=== PATIENT | male | born 1940 | race Caucasian/White ===

== ENCOUNTER 2017-08-22 14:01 | Emergency (ER) | payer OTHER, MEDICARE ==
[~2017-08-22] VITALS: Ht 180.3 cm; Wt 140.0 kg
[~2017-08-22 14:01] MED LIST: 1-ME1LIQ PO; ASPI81TA82 PO; CLAR10TA7 PO; DOXY1CAP91 PO; ENAL20TA81 PO; FLUT1SPR9 EACH NARE; GLUC10TA3 PO; HYDR-2768 PO; LANTUS2P SQ; LEVA500T PO; LOPR50TA12 PO; METF-324 PO; METF500 PO; OMEG100037 PO; OMEP20CA5 PO; SIMV20 PO; SORB70SO36 PO; TRAM50TA PO; TRIA.1%T TOP; VENTAER INH
[2017-08-22] MEDS ORDERED: IOHEXOL 350 MG/ML 10 ML VIAL (for RAD DIAG) IVCONTRAST ONE (14:02)
[2017-08-22 14:13] VITALS: BP 182/76; PULSE 97; RESP 24; TEMP 98.7; O2SAT 94
--- NOTE | 2017-08-22 14:29 | PD ---
HPI Chief Complaint: Respiratory Symptoms Time Seen by Provider: 14:21 Travel History International Travel<30 days: No Contact w/Intl Traveler<30days: No Traveled to known affect area: No History of Present Illness HPI This patient complains of shortness of breath. Duration is 3 days. He has a dry hacking cough. Denies fever or chest pain. He says he has COPD from pipe smoking but quit decades ago. He uses inhaler at home. Does not use oxygen. Symptoms severity is moderate. No alleviating factors. No exacerbating factors. PFSH Past Medical History Anxiety: No Depression: No Cancer: No Cardiovascular Problems: Yes High Cholesterol: Yes Diabetes: No Patient Takes Glucophage: No Diminished Hearing: No Endocrine: Yes Glaucoma: No Hepatitis: No Hiatal Hernia: No Hypertension: Yes Medical other: Yes (BACK PROBLEMS) Musculoskeletal: Yes Psychiatric: No Respiratory: Yes (COPD ) Thyroid Disease: No Past Surgical History Abdominal Surgery: Yes (MECKLES DIVERTICULUM) Eye Surgery: Yes (CATARACT RIGHT AND LEFT EYE) Pacemaker: No Other Surgery: Yes Social History Alcohol Use: No Tobacco Use: No (FORMER) Substance Use: No Allergies-Medications (Allergen,Severity, Reaction): Coded Allergies: No Known Allergies (Unverified Allergy, Unknown, 08/22/17) Reported Meds & Prescriptions Reported Meds & Active Scripts Active Prednisone 20 Mg Tab 40 Mg PO DAILY Take 40 mg (2 tablets) daily for 5 days Review of Systems General / Constitutional: No: Fever Eyes: No: Visual changes HENT: No: Headaches Cardiovascular: Positive: Edema, No: Chest Pain or Discomfort Respiratory: Positive: Cough, Shortness of Breath, Wheezing Gastrointestinal: No: Abdominal Pain Genitourinary: No: Dysuria Musculoskeletal: Positive: Edema, No: Pain Skin: No Rash Neurologic: No: Weakness Psychiatric: No: Depression Endocrine: No: Polydipsia Hematologic/Lymphatic: No: Easy Bruising Physical Exam Narrative GENERAL: Well-nourished, well-developed patient in no apparent distress. SKIN: Focused skin assessment reveals no rash and nodules. Skin is Warm and dry. HEAD: Atraumatic. Normocephalic. EYES: Pupils equal and round. No scleral icterus. No injection or drainage. ENT: No nasal bleeding or discharge. Mucous membranes pink and moist. NECK: Trachea midline. No JVD. CARDIOVASCULAR: Regular rate and rhythm. No murmur appreciated. RESPIRATORY: No accessory muscle use. Some expiratory wheezing. Breath sounds equal bilaterally. GASTROINTESTINAL: Abdomen soft, non-tender, nondistended. Hepatic and splenic margins not palpable. MUSCULOSKELETAL: No obvious deformities. No clubbing. No cyanosis. Trace symmetric edema the feet ankles . NEUROLOGICAL: Awake and alert. No obvious cranial nerve deficits. Motor grossly within normal limits. Normal speech. PSYCHIATRIC: Appropriate mood and affect; insight and judgment normal. Data Data Last Documented VS Vital Signs Date Time Temp Pulse Resp B/P (MAP) Pulse Ox O2 Delivery O2 Flow Rate FiO2 08/22/17 16:00 98 15 145/67 (93) 98 Nasal Cannula 3.00 08/22/17 14:13 98.7 Orders Orders Iv Access Insert/Monitor (08/22/17 14:21) Chest, Single Ap (08/22/17 ) Electrocardiogram (08/22/17 ) Complete Blood Count With Diff (08/22/17 14:21) Basic Metabolic Panel (Bmp) (08/22/17 14:21) Creatine Kinase (Cpk) (08/22/17 14:21) Troponin I (08/22/17 14:21) Albuterol-Ipratropium Neb (Duoneb Neb) (08/22/17 14:30) Ct Pulmonary Angiogram (08/22/17 ) Iohexol 350 Inj (Omnipaque 350 Inj) (08/22/17 14:02) Prednisone (Deltasone) (08/22/17 18:00) Labs Laboratory Tests Test 08/22/17 14:25 08/22/17 15:35 White Blood Count 8.6 TH/MM3 Red Blood Count 4.15 MIL/MM3 Hemoglobin 11.1 GM/DL Hematocrit 34.2 % Mean Corpuscular Volume 82.4 FL Mean Corpuscular Hemoglobin 26.6 PG Mean Corpuscular Hemoglobin Concent 32.4 % Red Cell Distribution Width 16.8 % Platelet Count 311 TH/MM3 Mean Platelet Volume 7.6 FL Neutrophils (%) (Auto) 69.9 % Lymphocytes (%) (Auto) 14.7 % Monocytes (%) (Auto) 14.5 % Eosinophils (%) (Auto) 0.4 % Basophils (%) (Auto) 0.5 % Neutrophils # (Auto) 6.0 TH/MM3 Lymphocytes # (Auto) 1.3 TH/MM3 Monocytes # (Auto) 1.2 TH/MM3 Eosinophils # (Auto) 0.0 TH/MM3 Basophils # (Auto) 0.0 TH/MM3 CBC Comment DIFF FINAL Differential Comment Blood Urea Nitrogen 34 MG/DL Creatinine 1.44 MG/DL Random Glucose 150 MG/DL Calcium Level 8.1 MG/DL Sodium Level 133 MEQ/L Potassium Level 4.9 MEQ/L Chloride Level 101 MEQ/L Carbon Dioxide Level 23.3 MEQ/L Anion Gap 9 MEQ/L Estimat Glomerular Filtration Rate 48 ML/MIN Total Creatine Kinase 287 U/L Troponin I LESS THAN 0.02 NG/ML MDM Medical Decision Making Medical Screen Exam Complete: Yes Emergency Medical Condition: Yes Medical Record Reviewed: Yes Differential Diagnosis COPD, bronchitis, pneumonia, PE Narrative Course I have reviewed the patient's electronic medical record. IV placed CBC is normal Metabolic profile shows some renal insufficiency with creatinine 1.44 I reviewed the chest x-ray which shows cardiomegaly but no infiltrate I gave him a series of 3 nebulizer treatments and a dose of prednisone On reassessment he is improved CT pulmonary and he was done to rule out PE and turns out to be negative Prescribed him prednisone. He has an inhaler at home. [facility]. Diagnosis Primary Impression: COPD with acute exacerbation Additional Instructions: The patient was advised to follow up with their physician and return if they worsen. Med/Other Pt SpecificInfo: Prescription(s) given Scripts Prednisone (Prednisone) 20 Mg Tab 40 MG PO DAILY, #10 TAB 0 Refills Take 40 mg (2 tablets) daily for 5 days Prov: Benjamin Prather MD 08/22/17 Disposition: DISCHARGE HOME Condition: Stable Benjamin Prather MD Aug 22, 2017 14:29
[2017-08-22] MEDS ORDERED: RESP: ALBUTEROL 2.5 MG/IPRATROPIUM 0.5 MG NEB (SCH) NEB ONE (14:30)
[2017-08-22 14:48] LABS: BASOPHIL % 0.5 % (0.0-2.0); EOSINOPHIL % 0.4 % (0.0-4.0); HEMATOCRIT 34.2 % (39.0-51.0); HEMOGLOBIN 11.1 GM/DL (13.0-17.0); LYMPH % 14.7 % (9.0-44.0); LYMPHOCYTE # 1.3 TH/MM3 (1.0-4.8); MEAN CELL VOLUME 82.4 FL (80.0-100.0); MEAN CORPUSCULAR HEMOGLOBIN 26.6 PG (27.0-34.0); MEAN CORPUSCULAR HGB CONC 32.4 % (32.0-36.0); MEAN PLATELET VOLUME 7.6 FL (7.0-11.0); MONO % 14.5 % (0.0-8.0); MONOCYTE # 1.2 TH/MM3 (0-0.9); NEUT % 69.9 % (16.0-70.0); PLATELET COUNT 311 TH/MM3 (150-450); RED BLOOD COUNT 4.15 MIL/MM3 (4.50-5.90); RED CELL DISTRIBUTION WIDTH 16.8 % (11.6-17.2); WHITE BLOOD COUNT 8.6 TH/MM3 (4.0-11.0)
[2017-08-22 15:04] VITALS: O2SAT 94
--- NOTE | 2017-08-22 15:16 | RADRPT ---
EXAM DATE/TIME: 08/22/2017 14:32 [facility] COMPARISON: CHEST SINGLE AP, July 27, 2014, 0:25. INDICATIONS : Chest pain and shortness of breath. MEDICAL HISTORY : Chronic obstructive pulmonary disease. SURGICAL HISTORY : None. ENCOUNTER: Initial ACUITY: 3 days PAIN SCORE: 9/10 LOCATION: Bilateral chest FINDINGS: The cardiac silhouette is enlarged in transverse diameter. The lungs are free of acute parenchymal op acity. No effusions are identified. There is prominence of the aortic knob is with calcification sohan acteristic of atherosclerotic vascular disease. The exam is limited secondary to motion artifact whic h limits the interpretation. CONCLUSION: 1. Cardiomegaly. No acute pulmonary disease. Filiberto Lindsay MD on August 22, 2017 at 15:14 Board Certified Radiologist. This report was verified electronically.
[2017-08-22 16:00] VITALS: BP 145/67; PULSE 98; RESP 15; O2SAT 98
[2017-08-22 16:29] LABS: BICARBONATE 23.3 MEQ/L (21.0-32.0); BLOOD UREA NITROGEN 34 MG/DL (7-18); CALCIUM 8.1 MG/DL (8.5-10.1); CHLORIDE 101 MEQ/L (98-107); CREATININE 1.44 MG/DL (0.60-1.30); GLOMERULAR FILTRATION RATE 48 ML/MIN (>89); GLUCOSE,RANDOM 150 MG/DL (74-106); SODIUM (NA) 133 MEQ/L (136-145); TROPONIN I LESS THAN 0.02 NG/ML (0.02-0.05)
--- NOTE | 2017-08-22 17:48 | RADRPT ---
EXAM DATE/TIME: 08/22/2017 16:45 [facility] COMPARISON: CHEST SINGLE AP, August 22, 2017, 14:32. INDICATIONS : Shortness of breath for two weeks. IV CONTRAST: 74 cc Omnipaque 350 (iohexol) IV RADIATION DOSE: 22.02 CTDIvol (mGy) ; Patient body habitus MEDICAL HISTORY : Hypertension. Chronic obstructive pulmonary disease. SURGICAL HISTORY : None. ENCOUNTER: Initial ACUITY: 1 day PAIN SCALE: 0/10 LOCATION: Bilateral chest TECHNIQUE: Volumetric scanning of the chest was performed using a pulmonary embolism protocol MIP images were re constructed. Using automated exposure control and adjustment of the mA and/or kV according to patien t size, radiation dose was kept as low as reasonably achievable to obtain optimal diagnostic quality images. DICOM format image data is available electronically for review and comparison. Follow-up recommendations for detected pulmonary nodules are based at a minimum on nodule size and pa tient risk factors according to Fleischner Society Guidelines. FINDINGS: Examination of the pulmonary vasculature demonstrates good filling of the main, lobar and segmental b ranches. There are no filling defects to suggest pulmonary embolism. Multiplanar reconstructions are also unremarkable. Examination of the lung barrett demonstrates no evidence of pulmonary nodule. No pleural fluid is iden tified. There is minimal scarring in the left upper lobe. There is increased anterior posterior dimen david characteristic of COPD. Examination of the mediastinum demonstrates no abnormally enlarged lymph nodes by CT criteria. No axi llary or hilar abnormalities are identified. Coronary artery calcifications are present. The visualiz ed upper abdomen demonstrates no abnormality. CONCLUSION: 1. No evidence of pulmonary embolism. Filiberto Lindsay MD on August 22, 2017 at 17:43 Board Certified Radiologist. This report was verified electronically.
[2017-08-22] MEDS ORDERED: PRED20 PO (17:59)
[2017-08-22] MEDS ORDERED: predniSONE 20 MG TAB PO ONE (18:00)
--- NOTE | 2017-08-23 19:09 | EKG ---
Date Performed: 08/22/2017 Time Performed: 14:28:40 PTAGE: 77 years EKG: Sinus rhythm RIGHT BUNDLE BRANCH BLOCK Compared to previous tracing, the patient is no longer tachycardic ABNORMA L ECG PREVIOUS TRACING : 07/27/2014 01.35 DOCTOR: Destiny Garner Interpretating Date/Time 08/23/2017 19:09:20
== END 2017-08-22 18:27 | disposition home or self-care (01) ==
LOC: NEPC 14:01
DX: J44.1 Chronic obstructive pulmonary disease with (acute) exacerbation (principal); I10 Essential (primary) hypertension; R94.31 Abnormal electrocardiogram [ECG] [EKG]; Z72.0 Tobacco use
CPT/HCPCS: 71045; 71275; 80048; 82550; 84484; 85025; 93005; 94664; 99285; J7512; Q9967

== ENCOUNTER 2018-07-29 11:11 | Inpatient (IN) ==
[2018-07-29] MEDS ORDERED: MethylPREDNISolone Sod Succinate Inj 125 MG/2 ML Vial IV.PUSH ONE (11:27)
--- NOTE | 2018-07-29 11:32 | ED ---
HPI General Chief complaint: Respiratory Symptoms Stated complaint: SOB Complaint Time Seen by Provider: 07/29/18 11:20 History of Present Illness HPI narrative: This is a 78-year-old male who reports a history of coronary artery disease, 3 stents, diabetes, COPD, patient of the [place], presents for evaluation of dyspnea. He reports over the past 3 months he has had intermittent dyspnea. It is worse since yesterday. He reports that yesterday he also developed a dry cough. Symptoms are moderate, worse when ambulating, endorses some orthopnea as well. He denies chest pain, objective fevers, chills or myalgias, abdominal pain, nausea or vomiting, new lower extremity edema. He reports that he is compliant with all of his medications that are prescribed to him at the [place]. He has no other complaints at this time. Related Data Home Medications Medication Instructions Recorded Confirmed albuterol sulfate 2 puff INHALATION Q4-6H PRN 07/29/18 07/29/18 amlodipine 10 mg PO DAILY 07/29/18 07/29/18 aspirin [Aspir-81] 81 mg PO DAILY 07/29/18 07/29/18 budesonide-formoterol 2 puff INHALATION BID 07/29/18 07/29/18 cadexomer iodine 40 g TOPICAL Q3D 07/29/18 07/29/18 clopidogrel 75 mg PO DAILY 07/29/18 07/29/18 docusate sodium 50 mg PO DAILY 07/29/18 07/29/18 enalapril maleate 20 mg PO BID 07/29/18 07/29/18 ferrous sulfate 324 mg PO BID 07/29/18 07/29/18 furosemide 40 mg PO DAILY 07/29/18 07/29/18 glipizide 10 mg PO BID 07/29/18 07/29/18 hydrochlorothiazide 25 mg PO DAILY 07/29/18 07/29/18 metformin 500 mg PO BID 07/29/18 07/29/18 omeprazole 20 mg PO DAILY 07/29/18 07/29/18 potassium chloride 20 meq PO BID 07/29/18 07/29/18 simvastatin 40 mg PO QPM 07/29/18 07/29/18 sorbitol 15 ml PO DAILY 07/29/18 07/29/18 tramadol 50 mg PO Q4-6H PRN 07/29/18 07/29/18 Allergies Allergy/AdvReac Type Severity Reaction Status Date / Time No Known Allergies Allergy Verified 07/29/18 11:17 Review of Systems ROS: all other systems reviewed are negative [facility] Surgical History Surgical History Previous back surgery (Acute) Social History Social History Smoking Status: Never smoker How Often Do You Have a Drink Containing Alcohol: Unable to Obtain Recent Travel in [facility] within the Last 8 Weeks: No Recent Out of Country Travel within the Last 8 Weeks: No Exam Narrative Exam Narrative: GENERAL: This is an obese male who appears tachypneic on examination. Vital signs reviewed. SKIN: Warm and dry. HEAD: Atraumatic. Normocephalic. EYES: Pupils equal and round. No scleral icterus. No injection or drainage. ENT: No nasal bleeding or discharge. Mucous membranes pink and moist. NECK: Trachea midline. No JVD. CARDIOVASCULAR: Regular rate and rhythm. No murmur appreciated. RESPIRATORY: No accessory muscle use. Expiratory wheezing noted bilaterally. GASTROINTESTINAL: Abdomen soft, non-tender, nondistended. Hepatic and splenic margins not palpable. MUSCULOSKELETAL: No obvious deformities. No clubbing. No cyanosis. No edema. NEUROLOGICAL: Awake and alert. No obvious cranial nerve deficits. Motor grossly within normal limits. Normal speech. Course Initial Documented Vital Signs Temperature 99.5 F 07/29/18 11:12 Pulse Rate 106 H 07/29/18 11:12 Respiratory Rate 24 07/29/18 11:12 Blood Pressure 207/94 H 07/29/18 11:12 Pulse Oximetry 89 L 07/29/18 11:12 Last Documented Vital Signs Temperature 99.5 F 07/29/18 11:12 Pulse Rate 101 H 07/29/18 15:41 Respiratory Rate 24 07/29/18 15:41 Blood Pressure 167/81 H 07/29/18 14:16 Pulse Oximetry 93 L 07/29/18 15:41 Medical Decision Making CALEB Attestation CALEB supervised visit: Yes Attestation: I, Dr. Jessica, have reviewed the advance practice practitioner's documentation and am in agreement, met with the patient face to face, made the diagnosis, and the medical decision making was done by me. *My assessment and Findings: Patient is a 78 year old male who comes in complaining of shortness of breath. He has been short of breath for a few months, but worse since yesterday. He is hypoxic on arrival with an O2 sat of 89%, this improved with NC. Given duoneb. CTA performed shows infiltrate, no evidence of PE. Patient given antibiotics. Will be admitted for further management. [facility] Narrative Medical decision making narrative: . His symptomsThe patient was placed on ECG monitoring and Pulse oximetry. Twelve-lead EKG was obtained. Lab work, chest x -ray obtained. Patient was administered 125 mg of Solu-Medrol, DuoNeb treatment. Lab work and imaging studies reviewed, CT pulmonary angiogram was obtained because the patient is tachycardic and hypoxic. It is negative for pulmonary embolism, suboptimal study per radiologist. There is an infiltrate in the left lung base and examination are consistent with pneumonia and COPD exacerbation, hypoxia on room air. The patient was given azithromycin and Rocephin. He will be admitted for further treatment. Medical Screen Exam Complete: Yes Emergency Medical Condition: Yes Differential Diagnosis Differential Diagnosis: COPD exacerbation, pneumonia, acute coronary syndrome, pulmonary edema, CHF exacerbation, pneumothorax, pulmonary embolism, bronchitis Lab Data Result diagrams: 07/29/18 11:30 07/29/18 11:30 Lab Results 07/29/18 07/29/18 07/29/18 Range/Units 11:30 11:30 11:30 WBC 7.8 (4.0-11.0) th/mm3 RBC 3.94 L (4.50-5.90) mil/mm3 Hgb 11.6 L (13.0-17.0) gm/dL Hct 34.0 L (39.0-51.0) % MCV 86.2 (80.0-100.0) fL MCH 29.3 (27.0-34.0) pg MCHC 34.0 (32.0-36.0) % RDW 15.9 (11.6-17.2) % Plt Count 343 (150-450) th/mm3 MPV 7.5 (7.0-11.0) fL Neut % (Auto) 79.1 H (16.0-70.0) % Lymph % (Auto) 9.5 (9.0-44.0) % [place] % (Auto) 9.9 H (0.0-8.0) % Eos % (Auto) 0.7 (0.0-4.0) % Baso % (Auto) 0.8 (0.0-2.0) % Neut # (Auto) 6.2 (1.8-7.7) th/mm3 Lymph # (Auto) 0.7 L (1.0-4.8) th/mm3 [place] # (Auto) 0.8 (0.0-0.9) th/mm3 Eos # (Auto) 0.1 (0.0-0.4) th/mm3 Baso # (Auto) 0.1 (0.0-0.2) th/mm3 WBC Differential . Differential Comment Auto diff final PT (9.8-11.6) sec INR Ratio APTT (23.4-31.7) sec Puncture Site Patient Temperature O2 Saturation (90-100) % ABG pH (7.380-7.420) ABG pCO2 (38-42) mmHg ABG pO2 (61-120) mmHg ABG HCO3 (22-26) mmol/L ABG O2 Content (12.0-20.0) Vol % ABG Base Excess (-2-2) mmol/L ABG Methemoglobin (0-2) % Wil Test Hemoglobin (12.0-16.0) G/DL Carboxyhemoglobin (0-4) % O2 Delivery Device Liter Flow L/M Inspired O2 % Critical Value Sodium 137 (136-145) meq/L Potassium 4.3 (3.5-5.1) meq/L Chloride 103 (98-107) meq/L Carbon Dioxide 24.0 (21.0-32.0) meq/L Anion Gap 10 (5-15) meq/L BUN 18 (7-18) mg/dL Creatinine 1.28 (0.60-1.30) mg/dL Estimated GFR 54 L (>89) mL/min Random Glucose 126 H (74-106) mg/dL Lactic Acid 1.6 (0.4-2.0) mmol/L Calcium 8.7 (8.5-10.1) mg/dL Magnesium (1.5-2.5) mg/dL Total Bilirubin 0.6 (0.2-1.0) mg/dL AST 13 L (15-37) U/L ALT 19 (12-78) U/L Alkaline Phosphatase 93 (45-117) U/L Total Creatine Kinase 113 (39-308) U/L CK-MB (CK-2) 1.1 (0.5-3.6) ng/mL Troponin I Less than 0.02 L (0.02-0.05) ng/mL B-Natriuretic Peptide (0-100) pg/mL Total Protein 7.8 (6.4-8.2) g/dL Albumin 3.5 (3.4-5.0) g/dL 07/29/18 07/29/18 07/29/18 Range/Units 11:30 11:35 11:35 WBC (4.0-11.0) th/mm3 RBC (4.50-5.90) mil/mm3 Hgb (13.0-17.0) gm/dL Hct (39.0-51.0) % MCV (80.0-100.0) fL MCH (27.0-34.0) pg MCHC (32.0-36.0) % RDW (11.6-17.2) % Plt Count (150-450) th/mm3 MPV (7.0-11.0) fL Neut % (Auto) (16.0-70.0) % Lymph % (Auto) (9.0-44.0) % [place] % (Auto) (0.0-8.0) % Eos % (Auto) (0.0-4.0) % Baso % (Auto) (0.0-2.0) % Neut # (Auto) (1.8-7.7) th/mm3 Lymph # (Auto) (1.0-4.8) th/mm3 [place] # (Auto) (0.0-0.9) th/mm3 Eos # (Auto) (0.0-0.4) th/mm3 Baso # (Auto) (0.0-0.2) th/mm3 WBC Differential Differential Comment PT 10.0 (9.8-11.6) sec INR 1.0 Ratio APTT 37.1 H (23.4-31.7) sec Puncture Site Patient Temperature O2 Saturation (90-100) % ABG pH (7.380-7.420) ABG pCO2 (38-42) mmHg ABG pO2 (61-120) mmHg ABG HCO3 (22-26) mmol/L ABG O2 Content (12.0-20.0) Vol % ABG Base Excess (-2-2) mmol/L ABG Methemoglobin (0-2) % Wil Test Hemoglobin (12.0-16.0) G/DL Carboxyhemoglobin (0-4) % O2 Delivery Device Liter Flow L/M Inspired O2 % Critical Value Sodium (136-145) meq/L Potassium (3.5-5.1) meq/L Chloride (98-107) meq/L Carbon Dioxide (21.0-32.0) meq/L Anion Gap (5-15) meq/L BUN (7-18) mg/dL Creatinine (0.60-1.30) mg/dL Estimated GFR (>89) mL/min Random Glucose (74-106) mg/dL Lactic Acid (0.4-2.0) mmol/L Calcium (8.5-10.1) mg/dL Magnesium 1.8 (1.5-2.5) mg/dL Total Bilirubin (0.2-1.0) mg/dL AST (15-37) U/L ALT (12-78) U/L Alkaline Phosphatase (45-117) U/L Total Creatine Kinase (39-308) U/L CK-MB (CK-2) (0.5-3.6) ng/mL Troponin I (0.02-0.05) ng/mL B-Natriuretic Peptide 71 (0-100) pg/mL Total Protein (6.4-8.2) g/dL Albumin (3.4-5.0) g/dL 07/29/18 Range/Units 11:42 WBC (4.0-11.0) th/mm3 RBC (4.50-5.90) mil/mm3 Hgb (13.0-17.0) gm/dL Hct (39.0-51.0) % MCV (80.0-100.0) fL MCH (27.0-34.0) pg MCHC (32.0-36.0) % RDW (11.6-17.2) % Plt Count (150-450) th/mm3 MPV (7.0-11.0) fL Neut % (Auto) (16.0-70.0) % Lymph % (Auto) (9.0-44.0) % [place] % (Auto) (0.0-8.0) % Eos % (Auto) (0.0-4.0) % Baso % (Auto) (0.0-2.0) % Neut # (Auto) (1.8-7.7) th/mm3 Lymph # (Auto) (1.0-4.8) th/mm3 [place] # (Auto) (0.0-0.9) th/mm3 Eos # (Auto) (0.0-0.4) th/mm3 Baso # (Auto) (0.0-0.2) th/mm3 WBC Differential Differential Comment PT (9.8-11.6) sec INR Ratio APTT (23.4-31.7) sec Puncture Site Right radial Patient Temperature 98.6 O2 Saturation 93 (90-100) % ABG pH 7.47 H (7.380-7.420) ABG pCO2 34 L (38-42) mmHg ABG pO2 79 (61-120) mmHg ABG HCO3 24 (22-26) mmol/L ABG O2 Content 14.3 (12.0-20.0) Vol % ABG Base Excess 0.6 (-2-2) mmol/L ABG Methemoglobin 0.8 (0-2) % Wil Test Present Hemoglobin 10.9 L (12.0-16.0) G/DL Carboxyhemoglobin 1.8 (0-4) % O2 Delivery Device Nasal cannula Liter Flow 2.50 L/M Inspired O2 30 % Critical Value No Sodium (136-145) meq/L Potassium (3.5-5.1) meq/L Chloride (98-107) meq/L Carbon Dioxide (21.0-32.0) meq/L Anion Gap (5-15) meq/L BUN (7-18) mg/dL Creatinine (0.60-1.30) mg/dL Estimated GFR (>89) mL/min Random Glucose (74-106) mg/dL Lactic Acid (0.4-2.0) mmol/L Calcium (8.5-10.1) mg/dL Magnesium (1.5-2.5) mg/dL Total Bilirubin (0.2-1.0) mg/dL AST (15-37) U/L ALT (12-78) U/L Alkaline Phosphatase (45-117) U/L Total Creatine Kinase (39-308) U/L CK-MB (CK-2) (0.5-3.6) ng/mL Troponin I (0.02-0.05) ng/mL B-Natriuretic Peptide (0-100) pg/mL Total Protein (6.4-8.2) g/dL Albumin (3.4-5.0) g/dL Imaging Data Radiologist's impression: Chest X-Ray 07/29/18 11:27 CONCLUSION: No acute cardiopulmonary disease. Chest CTA 07/29/18 12:27 CONCLUSION: 1. Suboptimal examination secondary to suboptimal opacification of the pulmonary arterial system. There is no evidence of central pulmonary alyssum. The secondary and tertiary branch vessels are in adequately evaluated and small emboli may be obscured. 2. Mild patchy opacity in the left medial lung base which could represent an early pneumonia. Discharge Plan Discharge Disposition Patient Disposition: ED Admit(ED Internal Use Only) Discharge Condition Condition: Stable Discharge Order Discharge Orders: ED Use Only Admit Order (Routine); Ordered 07/29/18 Ordered By: Feliberto Lemus Discharge Details Diagnosis: Pneumonia, COPD exacerbation Physicians Team ED Provider: Blanche Jessica ED Midlevel Provider: Feliberto Lemus Attending Provider: Steve Mejia Status ED Status: Admitted Patient
[2018-07-29 11:55] LABS: ABG Base Excess 0.6 mmol/L (-2-2); ABG PCO2 34 mmHg (38-42); ABG PO2 79 mmHg (61-120)
[2018-07-29 12:03] LABS: Baso # (Auto) 0.1 th/mm3 (0.0-0.2); Baso % (Auto) 0.8 % (0.0-2.0); Eos # (Auto) 0.1 th/mm3 (0.0-0.4); Eos % (Auto) 0.7 % (0.0-4.0); Hemoglobin 11.6 gm/dL (13.0-17.0); Lymph # (Auto) 0.7 th/mm3 (1.0-4.8); Lymph % (Auto) 9.5 % (9.0-44.0); Mean Corpuscular Hemoglobin 29.3 pg (27.0-34.0); Mean Corpuscular Volume 86.2 fL (80.0-100.0); Mean Platelet Volume 7.5 fL (7.0-11.0); Mono # (Auto) 0.8 th/mm3 (0.0-0.9); Mono % (Auto) 9.9 % (0.0-8.0); Neut # (Auto) 6.2 th/mm3 (1.8-7.7); Neut % (Auto) 79.1 % (16.0-70.0); Platelet Count 343 th/mm3 (150-450); Red Blood Count 3.94 mil/mm3 (4.50-5.90); Red Cell Distribution Width 15.9 % (11.6-17.2); White Blood Count 7.8 th/mm3 (4.0-11.0)
[2018-07-29 12:08] LABS: Activated Partial Thrombo Time 37.1 sec (23.4-31.7)
[2018-07-29 12:22] LABS: Albumin 3.5 g/dL (3.4-5.0); Anion Gap 10 meq/L (5-15); Blood Urea Nitrogen 18 mg/dL (7-18); Calcium 8.7 mg/dL (8.5-10.1); Chloride 103 meq/L (98-107); Glomerular Filtration Rate 54 mL/min (>89); Glucose,Random 126 mg/dL (74-106); Potassium 4.3 meq/L (3.5-5.1); Sodium 137 meq/L (136-145)
[2018-07-29 12:23] LABS: Alanine Aminotransferase 19 U/L (12-78); Aspartate Aminotransferase 13 U/L (15-37)
[2018-07-29 12:26] LABS: Alkaline Phosphatase 93 U/L (45-117); Creatine Kinase 113 U/L (39-308); Total Protein 7.8 g/dL (6.4-8.2)
--- NOTE | 2018-07-29 12:30 | XR ---
EXAM DATE: 07/29/2018 12:22 PM EST AGE/SEX: 78 years / Male INDICATIONS: Cough. CLINICAL DATA: This is the patient's initial encounter. Patient reports that signs and symptoms have been present for 1 month and indicates a pain score of 0/10. MEDICAL/SURGICAL HISTORY: . Hypertension. Chronic obstructive pulmonary disease. None. COMPARISON: [facility] [place], CHEST SINGLE AP, 08/22/2017. . FINDINGS: A single AP view of the chest demonstrates the lungs to be symmetrically aerated without evidence of mass, infiltrate or effusion. Mild atherosclerotic calcifications present in the aorta. The heart si ze is at the upper limits of normal with no perihilar edema. There are multiple overlying electrocard iogram leads. Osseous structures are intact. CONCLUSION: No acute cardiopulmonary disease. Electronically signed by: Arpit Peralta MD Board Certified Radiologist 07/29/2018 12:29 PM [facility] Crawford
[2018-07-29 12:38] LABS: Creatine Kinase MB 1.1 ng/mL (0.5-3.6)
--- NOTE | 2018-07-29 13:39 | CT ---
EXAM DATE: 07/29/2018 1:23 PM EST AGE/SEX: 78 years / Male INDICATIONS: Shortness of breath. CLINICAL DATA: This is the patient's initial encounter. Patient reports that signs and symptoms have been present for 2 days and indicates a pain score of 1/10. MEDICAL/SURGICAL HISTORY: Chronic obstructive pulmonary disease. Hypertension. None. RADIATION DOSE: 29.07 CTDI (mGy) [place] [facility] [place]/22/2017. . TECHNIQUE: Volumetric scanning was performed using a multi-row detector CT scanner during bolus infu david of 71 ml Omnipaque 350 (iohexol) nonionic water-soluble contrast as a single exam dose. The fior a was post processed with a variety of visualization algorithms including full volume maximum intensi ty projection and sliding thin slab reformation. Using automated exposure control and adjustment of t he mA and/or kV according to patient size, radiation dose was kept as low as reasonably achievable to obtain optimal diagnostic quality images. DICOM format image data is available electronically for r eview and comparison. FINDINGS: Suboptimal examination secondary to suboptimal opacification of the pulmonary arterial syst em [place] to timing of the bolus. Pulmonary Arteries: No filling defects are seen in the 18th pulmonary artery and right and left bran ch vessels. The subsegmental vessels are suboptimally evaluated. More peripheral emboli cannot be exc luded. Lung: Mild patchy opacity now noted in the left medial lung base. Effusion: None. Mediastinum: No evidence of mediastinal or hilar adenopathy. Coronary artery calcifications are agai n noted. Other: The axilla is unremarkable. CONCLUSION: 1. Suboptimal examination secondary to suboptimal opacification of the pulmonary arterial system. Th ere is no evidence of central pulmonary alyssum. The secondary and tertiary branch vessels are in oliver quately evaluated and small emboli may be obscured. 2. Mild patchy opacity in the left medial lung base which could represent an early pneumonia. Electronically signed by: Arpit Peralta MD Board Certified Radiologist 07/29/2018 1:38 PM EST
[2018-07-29] MEDS ORDERED: Azithromycin Inj 500 MG in Sodium Chlor 0.9% Inj 250 ML IV.SIG ONE (13:48)
[2018-07-29] MEDS ORDERED: Acetaminophen 325 MG Tablet PO PRN (14:54)
[2018-07-29] MEDS ORDERED: guaiFENesin/Dextromethorphan 200 MG/20 MG 10 ML UDC PO PRN (14:54)
[2018-07-29] MEDS ORDERED: Azithromycin Inj 500 MG in Sodium Chlor 0.9% Inj 250 ML IV.SIG SCH (15:00)
[2018-07-29] MEDS: Enoxaparin Inj 40 MG/0.4 ML Syringe SQ SCH (15:18)
--- NOTE | 2018-07-29 17:02 | P.HP ---
History of Present Illness Primary Care Physician: Nathanael Macias Chief Complaint: SOB History of Present Illness: 78-year-old male with history of HTN, CAD s/p stents x3, DM, COPD, presents with worsening shortness of breath. Patient states he has been battling shortness of breath over the past 3 months, however became significantly worse this week to where he could not even ambulate to his mailbox. He also reports recently developing a dry nonproductive cough and endorses some orthopnea. He has also noticed recent occasional wheezing for which he has been using his albuterol rescue inhaler 4x a day with minimal relief. Denies any fever/chills , chest pain, palpitations, abdominal pain, nausea/vomiting, diarrhea, or urinary complaints. He denies any other medical complaints at this time. The [facility] with [facility]. He states he had 3 stents placed in December 2017. He denies any history of CHF, although he has gained 30lbs over the past few months and was told by his PCP that it was due to retaining fluid and was started on lasix in addition to his hctz. He believes he had an echocardiogram within the past 6months at [facility] that was reportedly unremarkable. Inpatient Certification: I certify that the inpatient services were ordered in accordance with Medicare regulations governing the order. This includes certification that hospital inpatient services are reasonable and necessary and in the case of services not specified as inpatient-only under 42 CFR 419.22(n), that they are appropriately provided as inpatient services in accordance to with the 2-midnight benchmark under 43 CFR 412.3(e) Estimated Total Length of Stay (Days): 3 Plans for Post Hospital Care: Home Review of Systems All other systems reviewed negative except as stated in [facility] - History History Provided By: Patient - Medical History Medical History: Medical History (Last Updated 07/29/18 @ 17:43 by Opal Dash) CAD (coronary artery disease) COPD (chronic obstructive pulmonary disease) Chronic back pain Diabetes mellitus GERD (gastroesophageal reflux disease) History of Meckel's diverticulum Hyperlipidemia Hypertension - Surgical History Surgical History: Surgical History (Last Updated 07/29/18 @ 17:42 by Opal Dash) History of appendectomy History of cardiac catheterization History of colon resection History of coronary artery stent placement Previous back surgery - Family History Family History: Family History (Last Updated 12/14/18 @ 17:41 by Opal Dash) Father Heart disease Leukemia Mother Gynecologic cancer - Social History I have reviewed the patient's Social History: Yes - Tobacco History Smoking Status: Former smoker Tobacco Type: Pipe (quit in 1986) - Alcohol History How Often Do You Have a Drink Containing Alcohol: Monthly or less - Substance Use History Substance History: No History of Abuse - Travel History Recent Travel in the [place] Within the Last 8 Weeks: No Recent Travel Out of the Country Within the Last 8 Weeks: No - Immunization History Tetanus Immunization: Unsure Medications and Allergies Active Medications: Active Medications Acetaminophen (Tylenol) 650 mg PO Q4H PRN PRN Reason: headache/fever/pain1-4 Albuterol (Duoneb Neb (Prn)) 1 ampul NEB Q4HR NEB PRN PRN Reason: SHORTNESS OF BREATH/WHEEZING Albuterol (Duoneb Neb (Shabbir)) 1 ampul NEB Q6HR NEB SHABBIR Amlodipine Besylate (Norvasc) 10 mg PO DAILY COUNT INCLUDES THE [facility] Aspirin (Ecotrin) 81 mg PO DAILY COUNT INCLUDES THE [facility] Budesonide/Formoterol Fumarate (Symbicort 160/4.5 Mcg Inh) 2 puff INH BID COUNT INCLUDES THE [facility] Clopidogrel Bisulfate (Plavix) 75 mg PO DAILY COUNT INCLUDES THE [facility] Enalapril Maleate (Vasotec) 20 mg PO BID COUNT INCLUDES THE [facility] Enalaprilat (Vasotec Inj) 1.25 mg IV.PUSH Q6H PRN PRN Reason: SBP> OR = 180, DBP> OR = 100 Enoxaparin Sodium (Lovenox Inj) 40 mg SQ Q24H COUNT INCLUDES THE [facility] Last Admin: 07/29/18 15:18 Dose: Not Given Ferrous Sulfate (Ferosul) 325 mg PO BID COUNT INCLUDES THE [facility] Furosemide (Lasix) 40 mg PO DAILY COUNT INCLUDES THE [facility] Glipizide (Glucotrol) 10 mg PO BID COUNT INCLUDES THE [facility] Guaifenesin/Dextromethorphan (Robitussin Dm Liq) 10 ml PO Q4H PRN PRN Reason: COUGH Ceftriaxone Sodium 1,000 mg/ (Sodium Chloride) 100 mls @ 200 mls/hr IV.SIG Q24H SHABBIR Azithromycin 500 mg/ Sodium (Chloride) 250 mls @ 250 mls/hr IV.SIG Q24H SHABBIR Methylprednisolone Sodium Succinate (Solumedrol Inj) 40 mg IV.PUSH Q6H SHABBIR Ondansetron HCl (Zofran Inj) 4 mg IV.PUSH Q6H PRN PRN Reason: NAUSEA OR VOMITING Pantoprazole Sodium (Protonix) 20 mg PO DAILY SHABBIR Potassium Chloride (K-Dur) 20 meq PO BID SHABBIR Pravastatin Sodium (Pravachol) 80 mg PO DAILY@1800 SHABBIR Sodium Chloride (Ns Flush) 2 ml IV.FLUSH PRN PRN PRN Reason: FLUSH AFTER USING IV ACCESS Sodium Chloride (Ns Flush) 2 ml IV.FLUSH BID SHABBIR Tramadol HCl (Ultram) 50 mg PO Q4H PRN PRN Reason: pain scale 5 to 10 Allergies Allergy/AdvReac Type Severity Reaction Status Date / Time No Known Allergies Allergy Verified 07/29/18 11:17 Home Medications Medication Instructions Recorded Confirmed Type albuterol sulfate 2 puff INHALATION Q4-6H PRN 07/29/18 07/29/18 History amlodipine 10 mg PO DAILY 07/29/18 07/29/18 History aspirin [Aspir-81] 81 mg PO DAILY 07/29/18 07/29/18 History budesonide-formoterol 2 puff INHALATION BID 07/29/18 07/29/18 History cadexomer iodine 40 g TOPICAL Q3D 07/29/18 07/29/18 History clopidogrel 75 mg PO DAILY 07/29/18 07/29/18 History docusate sodium 50 mg PO DAILY 07/29/18 07/29/18 History enalapril maleate 20 mg PO BID 07/29/18 07/29/18 History ferrous sulfate 324 mg PO BID 07/29/18 07/29/18 History furosemide 40 mg PO DAILY 07/29/18 07/29/18 History glipizide 10 mg PO BID 07/29/18 07/29/18 History hydrochlorothiazide 25 mg PO DAILY 07/29/18 07/29/18 History metformin 500 mg PO BID 07/29/18 07/29/18 History omeprazole 20 mg PO DAILY 07/29/18 07/29/18 History potassium chloride 20 meq PO BID 07/29/18 07/29/18 History simvastatin 40 mg PO QPM 07/29/18 07/29/18 History sorbitol 15 ml PO DAILY 07/29/18 07/29/18 History tramadol 50 mg PO Q4-6H PRN 07/29/18 07/29/18 History Exam Vital signs: Vital Signs 07/29/18 11:12 07/29/18 11:45 07/29/18 11:49 Temperature 99.5 F Pulse Rate 106 H 105 H 99 H Respiratory Rate 24 26 H 18 Blood Pressure 207/94 H 183/81 H Pulse Oximetry 89 L 97 97 07/29/18 12:06 07/29/18 12:31 07/29/18 13:41 Temperature Pulse Rate 110 H 107 H 115 H Respiratory Rate 17 22 25 H Blood Pressure 208/82 H 183/74 H Pulse Oximetry 95 93 L 94 L 07/29/18 14:16 07/29/18 15:41 Temperature Pulse Rate 108 H 101 H Respiratory Rate 28 H 24 Blood Pressure 167/81 H Pulse Oximetry 93 L 93 L Intake & Output 07/28/18 07/29/18 07/29/18 18:59 06:59 18:59 Intake Total 350 / 350 Balance 350 / 350 Weight 136.078 kg Intake: IV 350 / 350 Azithromycin Inj 500 MG In NS 250 / 250 Inj 250 ML @ 250 mls/hr IV.SIG ONCE ONE Rx#:[id number] Rocephin Inj 2,000 MG In NS Inj 100 / 100 100 ML @ 200 mls/hr IV.SIG ONCE ONE Rx#:[id number] Narrative: GENERAL: Well-nourished, well-developed pleasant obese elderly male patient in [facility]. SKIN: Warm and dry. No rash. HEENT: Normocephalic. Atraumatic. Pupils equal and round. Mucous membranes pink and moist. NECK: Supple. Trachea midline. CARDIOVASCULAR: Regular rate and rhythm. No murmur appreciated. RESPIRATORY: No accessory muscle use. Diffuse scattered expiratory wheezing with faint rales at left base. Breath sounds equal bilaterally. GASTROINTESTINAL: Abdomen soft, non-tender, nondistended. Normoactive bowel sounds x4. MUSCULOSKELETAL: No obvious deformities. BLE with 1+ edema. Left anterior ramey with healing superficial abrasion. NEUROLOGICAL: Awake and alert. No obvious cranial nerve deficits. Motor grossly within normal limits. Moving all extremities spontaneously. Normal speech. PSYCHIATRIC: Appropriate mood and affect; insight and judgment normal. Results - Labs CBC & Chem 7: 07/29/18 11:30 07/29/18 11:30 Labs: Laboratory Results - last 24 hr 07/29/18 07/29/18 07/29/18 11:30 11:30 11:30 WBC 7.8 RBC 3.94 L Hgb 11.6 L Hct 34.0 L MCV 86.2 MCH 29.3 MCHC 34.0 RDW 15.9 Plt Count 343 MPV 7.5 Neut % (Auto) 79.1 H Lymph % (Auto) 9.5 Nance % (Auto) 9.9 H Eos % (Auto) 0.7 Baso % (Auto) 0.8 Neut # (Auto) 6.2 Lymph # (Auto) 0.7 L Nance # (Auto) 0.8 Eos # (Auto) 0.1 Baso # (Auto) 0.1 WBC Differential . Differential Comment Auto diff final PT INR APTT Puncture Site Patient Temperature O2 Saturation ABG pH ABG pCO2 ABG pO2 ABG HCO3 ABG O2 Content ABG Base Excess ABG Methemoglobin Wil Test Hemoglobin Carboxyhemoglobin O2 Delivery Device Liter Flow Inspired O2 Critical Value Sodium 137 Potassium 4.3 Chloride 103 Carbon Dioxide 24.0 Anion Gap 10 BUN 18 Creatinine 1.28 Estimated GFR 54 L Random Glucose 126 H Lactic Acid 1.6 Calcium 8.7 Magnesium Total Bilirubin 0.6 AST 13 L ALT 19 Alkaline Phosphatase 93 Total Creatine Kinase 113 CK-MB (CK-2) 1.1 Troponin I Less than 0.02 L B-Natriuretic Peptide Total Protein 7.8 Albumin 3.5 07/29/18 07/29/18 07/29/18 11:30 11:35 11:35 WBC RBC Hgb Hct MCV MCH MCHC RDW Plt Count MPV Neut % (Auto) Lymph % (Auto) Nance % (Auto) Eos % (Auto) Baso % (Auto) Neut # (Auto) Lymph # (Auto) Nance # (Auto) Eos # (Auto) Baso # (Auto) WBC Differential Differential Comment PT 10.0 INR 1.0 APTT 37.1 H Puncture Site Patient Temperature O2 Saturation ABG pH ABG pCO2 ABG pO2 ABG HCO3 ABG O2 Content ABG Base Excess ABG Methemoglobin Wil Test Hemoglobin Carboxyhemoglobin O2 Delivery Device Liter Flow Inspired O2 Critical Value Sodium Potassium Chloride Carbon Dioxide Anion Gap BUN Creatinine Estimated GFR Random Glucose Lactic Acid Calcium Magnesium 1.8 Total Bilirubin AST ALT Alkaline Phosphatase Total Creatine Kinase CK-MB (CK-2) Troponin I B-Natriuretic Peptide 71 Total Protein Albumin 07/29/18 11:42 WBC RBC Hgb Hct MCV MCH MCHC RDW Plt Count MPV Neut % (Auto) Lymph % (Auto) Nance % (Auto) Eos % (Auto) Baso % (Auto) Neut # (Auto) Lymph # (Auto) Nance # (Auto) Eos # (Auto) Baso # (Auto) WBC Differential Differential Comment PT INR APTT Puncture Site Right radial Patient Temperature 98.6 O2 Saturation 93 ABG pH 7.47 H ABG pCO2 34 L ABG pO2 79 ABG HCO3 24 ABG O2 Content 14.3 ABG Base Excess 0.6 ABG Methemoglobin 0.8 Wil Test Present Hemoglobin 10.9 L Carboxyhemoglobin 1.8 O2 Delivery Device Nasal cannula Liter Flow 2.50 Inspired O2 30 Critical Value No Sodium Potassium Chloride Carbon Dioxide Anion Gap BUN Creatinine Estimated GFR Random Glucose Lactic Acid Calcium Magnesium Total Bilirubin AST ALT Alkaline Phosphatase Total Creatine Kinase CK-MB (CK-2) Troponin I B-Natriuretic Peptide Total Protein Albumin - Imaging Impressions Chest X-Ray 07/29/18 11:27 CONCLUSION: No acute cardiopulmonary disease. Chest CTA 07/29/18 12:27 CONCLUSION: 1. Suboptimal examination secondary to suboptimal opacification of the pulmonary arterial system. There is no evidence of central pulmonary alyssum. The secondary and tertiary branch vessels are in adequately evaluated and small emboli may be obscured. 2. Mild patchy opacity in the left medial lung base which could represent an early pneumonia. Caprini VTE Risk Assessment Caprini VTE Risk Assessment: Moderate/High Risk (score >= 2) Caprini Risk Assessment Model: Point Value = 1 Point Value = 2 Point Value = 3 Point Value = 5 Age 41-60 Minor surgery BMI > 25 kg/m2 Swollen legs Varicose veins or History of unexplained or recurrent spontaneous Oral contraceptives or hormone replacement Sepsis (< 1 month) Serious lung disease, including pneumonia (< 1 month) Abnormal pulmonary function Acute myocardial infarction Congestive heart failure (< 1 month) History of inflammatory bowel disease Medical patient at bed rest Age 61-74 Arthroscopic surgery Major open surgery (> 45 min) Laparoscopic surgery (> 45 min) Malignancy Confined to bed (> 72 hours) Immobilizing plaster cast Central venous access Age >= 75 History of VTE Family history of VTE Factor V Leiden Prothrombin [id number] Lupus anticoagulant Anticardiolipin antibodies Elevated serum homocysteine Heparin-induced thrombocytopenia Other congenital or acquired thrombophilia Stroke (< 1 month) Elective arthroplasty Hip, pelvis, or leg fracture Acute spinal cord injury (< 1 month) Prophylaxis Regimen: Total Risk Factor Score Risk Level Prophylaxis Regimen 0-1 Low Early ambulation 2 Moderate Order ONE of the following: *Sequential Compression Device (SCD) *Heparin 5000 units SQ BID 3-4 Higher Order ONE of the following medications: *Heparin 5000 units SQ TID *Enoxaparin/Lovenox 40 mg SQ daily (WT < 150 kg, CrCl > 30 mL/min) *Enoxaparin/Lovenox 30 mg SQ daily (WT < 150 kg, CrCl > 10-29 mL/min) *Enoxaparin/Lovenox 30 mg SQ BID (WT < 150 kg, CrCl > 30 mL/min) AND/OR *Sequential Compression Device (SCD) 5 or more Highest Order ONE of the following medications: *Heparin 5000 units SQ TID (Preferred with Epidurals) *Enoxaparin/Lovenox 40 mg SQ daily (WT < 150 kg, CrCl > 30 mL/min) *Enoxaparin/Lovenox 30 mg SQ daily (WT < 150 kg, CrCl > 10-29 mL/min) *Enoxaparin/Lovenox 30 mg SQ BID (WT < 150 kg, CrCl > 30 mL/min) AND *Sequential Compression Device (SCD) Assessment and Plan - Plan 78-year-old male with history of HTN, CAD s/p stents x3, DM, COPD, presents with worsening shortness of breath. Acute respiratory failure with hypoxia: Patient to tachypneic with RR 26, O2 sat 89%. Suspect multifactorial secondary to COPD exacerbation and pneumonia -CXR reviewed, no acute findings, however chest CTA shows patchy opacity at left lung base, likely early pneumonia; no PE -Concern for CHF given symptoms of CASTELLANO/orthopnea/weight gain, however patient denies any hx of CHF, BNP 71, and patient reports recent outpatient unremarkable echocardiogram within the past 6months at [facility] (would try to obtain records, however unlikely available on the weekend) -Will repeat echocardiogram -See treatment for COPD and pneumonia below -O2 as needed -Incentive spirometer, Acapella Sepsis with community-acquired pneumonia: Patient meets sepsis with tachycardia heart rate 110s, tachypneic RR 28, and suspected sourcepneumonia. -Lactic acid 1.6 -Chest CTA positive for opacity at left lung base -Continue on antibiotics with IV Rocephin/Zithromax -Check sputum culture, urinary pneumococcal/Legionella antigens -Robitussin as needed for cough -Monitor for improvement Acute COPD exacerbation: Patient with +wheezing on exam. S/p IV Solu-Medrol 125 mg x1 and duonebs x3 in the ED with minimal improvement. -will continue steroids with IV Solu-Medrol 40 mg q6h -duonebs q6h shabbir and q4h prn -continue Symbicort BID HTN/HLD/CAD s/p stents x3: Chronic. No complaints of chest pain. -continue patient's home meds including aspirin/statin, amlodipine 10mg qd, enalapril 20mg bid, lasix 40mg qd, statin -monitor on telemetry -no signs of fluid overload, BNP 71 Diabetes Mellitus: chronic -continue patient's glipizide and long acting insulin 35u sq in the morning -hold patient's metformin due to recent IV contrast -monitor Accu-checks and cover with SSI GERD: chronic -continue patient's PPI DVT Prophylaxis: Lovenox sq
[2018-07-29] MEDS ORDERED: Dextrose 50% in Water 50 ML Vial IV.PUSH PRN (17:33)
[2018-07-29] MEDS: MethylPREDNISolone Sod Succinate Inj 40 MG/ML Vial IV.PUSH SCH ×2 (17:35→23:00)
[2018-07-29] MEDS ORDERED: Insulin NovoLOG Aspart Correctional Sugar Inj SQ SCH (21:00)
[2018-07-29] MEDS: Budesonide-Formoterol 160/4.5 MCG 6 GM Inhaler INH SCH (21:00)
[2018-07-29] MEDS: glipiZIDE 10 MG Tablet PO SCH (22:50)
[2018-07-29] MEDS: Ferrous Sulfate 325 MG Tablet PO SCH (22:50)
[2018-07-30] MEDS: MethylPREDNISolone Sod Succinate Inj 40 MG/ML Vial IV.PUSH SCH ×3 (07:25→21:31)
[2018-07-30] MEDS ORDERED: Insulin Detemir Inj 1,000 UNIT/10 ML Vial SQ SCH (08:00)
[2018-07-30] MEDS: Furosemide 40 MG Tablet PO SCH (08:44)
[2018-07-30] MEDS: Budesonide-Formoterol 160/4.5 MCG 6 GM Inhaler INH SCH ×2 (08:44→20:48)
[2018-07-30] MEDS: amLODIPine 10 MG Tablet PO SCH (08:44)
[2018-07-30] MEDS: Pantoprazole Sodium 20 MG DR Tablet PO SCH (08:44)
[2018-07-30] MEDS: Ferrous Sulfate 325 MG Tablet PO SCH ×2 (08:44→20:46)
[2018-07-30] MEDS: glipiZIDE 10 MG Tablet PO SCH ×2 (08:44→20:46)
[2018-07-30] MEDS: Insulin NovoLOG Aspart Correctional Sugar Inj SQ SCH ×6 (08:47→21:31)
--- NOTE | 2018-07-30 10:20 | ECG ---
Date Performed: 07/29/2018 Time Performed: 12:17:31 PTAGE: 78 years EKG: SINUS TACHYCARDIA RIGHT BUNDLE BRANCH BLOCK ABNORMAL ECG INTERPRETATION BASED ON A DEFAULT AGE OF 40 YEARS Since the PREVIOUS TRACING , no significant change noted PREVIOUS TRACIN08/22/2017 14.28 DOCTOR: Filiberto Sharp Interpretating Date/Time 07/30/2018 10:19:28
[2018-07-30 10:33] LABS: Baso % (Auto) 0.2 % (0.0-2.0); Hematocrit 35.2 % (39.0-51.0); Hemoglobin 11.5 gm/dL (13.0-17.0); Lymph # (Auto) 0.5 th/mm3 (1.0-4.8); Lymph % (Auto) 6.3 % (9.0-44.0); Mean Corpuscular HGB Conc 32.8 % (32.0-36.0); Mean Corpuscular Hemoglobin 28.6 pg (27.0-34.0); Mean Corpuscular Volume 87.1 fL (80.0-100.0); Mean Platelet Volume 7.8 fL (7.0-11.0); Mono # (Auto) 0.4 th/mm3 (0.0-0.9); Mono % (Auto) 5.6 % (0.0-8.0); Neut # (Auto) 6.8 th/mm3 (1.8-7.7); Neut % (Auto) 87.9 % (16.0-70.0); Platelet Count 379 th/mm3 (150-450); Red Blood Count 4.04 mil/mm3 (4.50-5.90); Red Cell Distribution Width 16.2 % (11.6-17.2); White Blood Count 7.7 th/mm3 (4.0-11.0)
[2018-07-30 10:59] LABS: Calcium 8.4 mg/dL (8.5-10.1); Carbon Dioxide 22.4 meq/L (21.0-32.0); Potassium 4.1 meq/L (3.5-5.1)
--- NOTE | 2018-07-30 11:31 | P.PNIM ---
Subjective Interval history: Patient reports his breathing is better overnight. Dry cough. No complaint of chest pain. No fevers or chills. Did walk with respiratory therapist this morning Physical Exam Vital signs: Last Vital Signs Temp 97.7 F 07/30/18 08:00 Pulse 102 H 07/30/18 08:00 Resp 20 07/30/18 08:00 BP 162/71 H 07/30/18 08:00 Pulse Ox 93 L 07/30/18 08:00 Intake & Output 07/28/18 07/29/18 07/30/18 07/31/18 06:59 06:59 06:59 06:59 Intake Total 350 / 350 Output Total 600 / 600 Balance -250 / -250 Weight 144.8 kg Narrative: GENERAL: This is a well-nourished, well-developed obese patient, in no apparent distress. CARDIOVASCULAR: Regular rate and rhythm RESPIRATORY: Few expiratory wheezes bilaterally GASTROINTESTINAL: Abdomen soft, non-tender, obese, nondistended. Normal active bowel sounds MUSCULOSKELETAL: Extremities without clubbing, cyanosis, trace to 1+ edema NEURO: Alert & Oriented x4 to person, place, time, situation. Moves all ext x4 Results Labs CBC & Chem 7: 07/30/18 09:37 07/30/18 09:37 Labs: Microbiology 07/29/18 11:35 Blood - Peripheral Aerobic Blood Culture - Preliminary No growth in 1 day 07/29/18 11:35 Blood - Peripheral Anaerobic Blood Culture - Preliminary No growth in 1 day 07/29/18 11:30 Blood - Peripheral Aerobic Blood Culture - Preliminary No growth in 1 day 07/29/18 11:30 Blood - Peripheral Anaerobic Blood Culture - Preliminary No growth in 1 day 07/29/18 15:19 Urine - Clean Catch Urine Streptococcus pneumoniae Antigen ( M - Final Presumptive negative for streptococcus pneumoniae antigen, suggesting no current or recent infection. Infection due to Streptococcus pneumoniae cannot be ruled out since the antigen present in the sample may be below the detection limit of the test. 07/29/18 15:19 Urine - Clean Catch Urine Legionella Antigen - Final Presumptive negative for Legionella pneumophila serogroup 1 antigen in urine, suggesting no recent or recurrent infection. Infection due to Legionella cannot be ruled out since other serogroups and species may cause disease, antigen may not be present in urine in early infection, and the level of antigen present in the urine may be below the detection limit of the test. 12/14/18 12:26 Nasal Wash Influenza Types A,B Antigen - Final Negative for FLU A and B antigen Infection due to influenza A or B cannot be ruled out since the antigen present in the sample may be below the detection limit of the test. Imaging Imaging: Impressions Chest X-Ray 07/29/18 11:27 CONCLUSION: No acute cardiopulmonary disease. Chest CTA 07/29/18 12:27 CONCLUSION: 1. Suboptimal examination secondary to suboptimal opacification of the pulmonary arterial system. There is no evidence of central pulmonary alyssum. The secondary and tertiary branch vessels are in adequately evaluated and small emboli may be obscured. 2. Mild patchy opacity in the left medial lung base which could represent an early pneumonia. Assessment and Plan (1) Community acquired pneumonia: Code(s): J18.9 - Pneumonia, unspecified organism Status: Acute (2) CKD stage 3 secondary to diabetes: Code(s): E11.22 - Type 2 diabetes mellitus with diabetic chronic kidney disease; N18.3 - Chronic kidney disease, stage 3 (moderate) Status: Chronic (3) Morbid obesity with BMI of 40.0-44.9, adult: Code(s): E66.01 - Morbid (severe) obesity due to excess calories; Z68.41 - Body mass index (BMI) 40.0-44.9, adult Status: Chronic Plan 78-year-old male with history of HTN, CAD s/p stents x3, DM, COPD, presents with worsening shortness of breath. Acute respiratory failure with hypoxia: Patient to tachypneic with RR 26, O2 sat 89%. Suspect multifactorial secondary to COPD exacerbation and community- acquired pneumonia -CXR reviewed, no acute findings, however chest CTA shows patchy opacity at left lung base, likely early pneumonia; no PE -Concern for CHF given symptoms of CASTELLANO/orthopnea/weight gain, however patient denies any hx of CHF, BNP 71, and patient reports recent outpatient unremarkable echocardiogram within the past 6months at the [facility] -Repeat echocardiogram pending -Wean oxygen as tolerated, review walk fit test Sepsis with community-acquired pneumonia: Patient meets sepsis with tachycardia heart rate 110s, tachypneic RR 28, and suspected sourcepneumonia.Clinically improved -Lactic acid 1.6 -Chest CTA positive for opacity at left lung base -Continue on antibiotics with IV Rocephin/Zithromax -Check sputum culture, urinary pneumococcal/Legionella antigens -Robitussin as needed for cough Acute COPD exacerbation with asthma: -will continue steroids with IV Solu-Medrol 40 mg and weaned to q. 8. -duonebs q6h anastacio and q4h prn -continue Symbicort BID HTN/HLD/CAD s/p stents x3: Chronic. No complaints of chest pain. -continue patient's home meds including aspirin/statin, amlodipine 10mg qd, enalapril 20mg bid, lasix 40mg qd, statin, blood pressure labile, IV Vasotec as needed. Diabetes Mellitus, type II, [id number], no complications, uncontrolled due to steroids: chronic -continue patient's glipizide and increase long acting insulin 35u sq to twice daily and start scheduled NovoLog with Solu-Medrol to be given. -hold patient's metformin due to recent IV contrast -monitor Accu-checks and cover with SSI Chronic kidney disease stage IIIstop metformin, monitor kidney function after contrast. Morbid obesity with BMI greater than 40weight loss counseling. GERD: chronic -continue patient's PPI DVT Prophylaxis: Lovenox Physical therapy Progress Note: Quality VTE Deep Vein Thrombosis/Pulmonary Embolism Present on Admission: No
[2018-07-30] MEDS: Azithromycin 250 MG Tablet PO SCH (13:49)
[2018-07-30] MEDS ORDERED: Azithromycin Inj 500 MG in Sodium Chlor 0.9% Inj 250 ML IV.SIG SCH (14:00)
[2018-07-30] MEDS: Enoxaparin Inj 40 MG/0.4 ML Syringe SQ SCH (15:00)
[2018-07-30] MEDS: Insulin Detemir Inj 1,000 UNIT/10 ML Vial SQ SCH (20:47)
[2018-07-31] MEDS: MethylPREDNISolone Sod Succinate Inj 40 MG/ML Vial IV.PUSH SCH (06:15)
[2018-07-31] MEDS: Insulin NovoLOG Aspart Correctional Sugar Inj SQ SCH ×5 (06:16→21:35)
[2018-07-31] MEDS: Pantoprazole Sodium 20 MG DR Tablet PO SCH (08:56)
[2018-07-31] MEDS: Insulin Detemir Inj 1,000 UNIT/10 ML Vial SQ SCH ×2 (08:56→21:35)
[2018-07-31] MEDS: Azithromycin 250 MG Tablet PO SCH (08:56)
[2018-07-31] MEDS: glipiZIDE 10 MG Tablet PO SCH ×2 (08:56→21:34)
[2018-07-31] MEDS: amLODIPine 10 MG Tablet PO SCH (08:56)
[2018-07-31] MEDS: Ferrous Sulfate 325 MG Tablet PO SCH ×2 (08:56→21:34)
[2018-07-31] MEDS: Furosemide 40 MG Tablet PO SCH (08:56)
[2018-07-31] MEDS: Budesonide-Formoterol 160/4.5 MCG 6 GM Inhaler INH SCH ×2 (08:57→21:36)
--- NOTE | 2018-07-31 10:50 | P.PNIM ---
Subjective Interval history: Patient reports breathing is better. No active shortness of breath. No chest pain. Follows up with the [facility]. Does have a referral to a bombsight specialist through the [facility]. Physical Exam Vital signs: Last Vital Signs Temp 97.9 F 07/31/18 04:00 Pulse 111 H 07/31/18 10:23 Resp 16 07/31/18 10:23 BP 179/77 H 07/31/18 04:00 Pulse Ox 95 07/31/18 10:23 Intake & Output 07/29/18 07/30/18 07/31/18 08/01/18 06:59 06:59 06:59 06:59 Intake Total 350 / 350 1860 / 1860 Output Total 600 / 600 650 / 650 Balance -250 / -250 1210 / 1210 Weight 144.8 kg Narrative: GENERAL: This is a well-nourished, well-developed obese patient, in no apparent distress. CARDIOVASCULAR: Tachycardic rate and regular rhythm RESPIRATORY: Few expiratory wheezes bilaterally with diminished breath sounds bilaterally GASTROINTESTINAL: Abdomen soft, non-tender, obese, nondistended. Normal active bowel sounds MUSCULOSKELETAL: Extremities without clubbing, cyanosis, trace to 1+ edema NEURO: Alert & Oriented x4 to person, place, time, situation. Moves all ext x4 Results Labs CBC & Chem 7: 07/30/18 09:37 07/30/18 09:37 Labs: Microbiology 07/29/18 11:35 Blood - Peripheral Aerobic Blood Culture - Preliminary No growth in 1 day 07/29/18 11:35 Blood - Peripheral Anaerobic Blood Culture - Preliminary No growth in 1 day 07/29/18 11:30 Blood - Peripheral Aerobic Blood Culture - Preliminary No growth in 1 day 07/29/18 11:30 Blood - Peripheral Anaerobic Blood Culture - Preliminary No growth in 1 day Assessment and Plan (1) Community acquired pneumonia: Code(s): J18.9 - Pneumonia, unspecified organism Status: Acute (2) CKD stage 3 secondary to diabetes: Code(s): E11.22 - Type 2 diabetes mellitus with diabetic chronic kidney disease; N18.3 - Chronic kidney disease, stage 3 (moderate) Status: Chronic (3) Morbid obesity with BMI of 40.0-44.9, adult: Code(s): E66.01 - Morbid (severe) obesity due to excess calories; Z68.41 - Body mass index (BMI) 40.0-44.9, adult Status: Chronic Plan 78-year-old male with history of HTN, CAD s/p stents x3, DM, COPD, presents with worsening shortness of breath. Acute respiratory failure with hypoxia: Patient to tachypneic with RR 26, O2 sat 89%. Suspect multifactorial secondary to COPD exacerbation and community- acquired pneumonia -CXR reviewed, no acute findings, however chest CTA shows patchy opacity at left lung base, likely early pneumonia; no PE -Concern for CHF given symptoms of CASTELLANO/orthopnea/weight gain, however patient denies any hx of CHF, BNP 71, and patient reports recent outpatient unremarkable echocardiogram within the past 6months at the [facility] -Repeat echocardiogram pending -Wean oxygen as tolerated, review walk fit test to determine if patient will need outpatient oxygen Sepsis with community-acquired pneumonia: Patient meets sepsis with tachycardia heart rate 110s, tachypneic RR 28, and suspected sourcepneumonia.Clinically improved -Lactic acid 1.6 -Chest CTA positive for opacity at left lung base -Continue on antibiotics with IV Rocephin/Zithromax -Check sputum culture, urinary pneumococcal/Legionella antigens -Robitussin as needed for cough Acute COPD exacerbation with asthma: -will continue steroids with IV Solu-Medrol 40 mg and weaned to q. 12, and transition to prednisone in the morning. -duonebs q6h anastacio and q4h prn -continue Symbicort BID HTN/HLD/CAD s/p stents x3: Chronic. No complaints of chest pain. Blood pressure continues to be uncontrolled and labile, continue patient's home meds including aspirin/statin, amlodipine 10mg qd, enalapril 20mg bid, lasix 40mg qd, statin. Hydralazine to the regimen today. Diabetes Mellitus, type II, gou-enkrkqw-fieezitwq, no complications, uncontrolled due to steroids: -continue patient's glipizide and increase long acting insulin 45u sq to twice daily and continue with scheduled NovoLog with Solu-Medrol to be given. -hold patient's metformin due to recent IV contrast and chronic kidney disease stage III -monitor Accu-checks and cover with SSI Chronic kidney disease stage IIIstop metformin, monitor kidney function after contrast. Morbid obesity with BMI greater than 40weight loss counseling. GERD: chronic -continue patient's PPI DVT Prophylaxis: Lovenox Continue with physical therapy Progress Note: Quality VTE Deep Vein Thrombosis/Pulmonary Embolism Present on Admission: No
[2018-07-31] MEDS: Enoxaparin Inj 40 MG/0.4 ML Syringe SQ SCH (14:00)
[2018-07-31] MEDS: hydrALAZINE 25 MG Tablet PO SCH ×2 (14:00→17:36)
[2018-07-31] MEDS ORDERED: MethylPREDNISolone Sod Succinate Inj 40 MG/ML Vial IV.PUSH SCH (21:00)
[2018-08-01] MEDS: glipiZIDE 10 MG Tablet PO SCH (08:47)
[2018-08-01] MEDS: Azithromycin 250 MG Tablet PO SCH (08:47)
[2018-08-01] MEDS: Furosemide 40 MG Tablet PO SCH (08:47)
[2018-08-01] MEDS: Pantoprazole Sodium 20 MG DR Tablet PO SCH (08:49)
[2018-08-01] MEDS: amLODIPine 10 MG Tablet PO SCH (08:49)
[2018-08-01] MEDS: Ferrous Sulfate 325 MG Tablet PO SCH (08:50)
[2018-08-01] MEDS: hydrALAZINE 25 MG Tablet PO SCH ×2 (08:50→12:29)
[2018-08-01] MEDS: Insulin NovoLOG Aspart Correctional Sugar Inj SQ SCH ×2 (08:50→13:11)
[2018-08-01] MEDS: Insulin Detemir Inj 1,000 UNIT/10 ML Vial SQ SCH (08:51)
[2018-08-01] MEDS: Budesonide-Formoterol 160/4.5 MCG 6 GM Inhaler INH SCH (08:57)
[2018-08-01] MEDS ORDERED: predniSONE 20 MG Tablet PO SCH (09:00)
--- NOTE | 2018-08-01 09:47 | P.DS ---
DS: Providers Date of admission: 07/29/18 14:54 Primary care physician: Nathanael Macias Brief History from admission: 78-year-old male with history of HTN, CAD s/p stents x3, DM, COPD, presents with worsening shortness of breath. Patient states he has been battling shortness of breath over the past 3 months, however became significantly worse this week to where he could not even ambulate to his mailbox. He also reports recently developing a dry nonproductive cough and endorses some orthopnea. He has also noticed recent occasional wheezing for which he has been using his albuterol rescue inhaler 4x a day with minimal relief. Denies any fever/chills, chest pain, palpitations, abdominal pain, nausea/vomiting, diarrhea, or urinary complaints. He denies any other medical complaints at this time. The patient follows with the [facility]. He states he had 3 stents placed in December 2017. He denies any history of CHF, although he has gained 30lbs over the past few months and was told by his PCP that it was due to retaining fluid and was started on lasix in addition to his hctz. He believes he had an echocardiogram within the past 6months at [facility] that was reportedly unremarkable. DS: Diagnosis Discharge Diagnosis (1) Acute respiratory failure with hypoxia: Status: Resolved Diagnosis: Principal (2) Sepsis: Status: Resolved Diagnosis: Principal (3) Community acquired pneumonia: Status: Resolved Diagnosis: Principal (4) CKD stage 3 secondary to diabetes: Status: Chronic Diagnosis: Secondary (5) Morbid obesity with BMI of 40.0-44.9, adult: Status: Chronic Diagnosis: Secondary (6) COPD exacerbation: Status: Resolved Diagnosis: Principal DS: Summary 78-year-old white male with a his story of hypertension, diabetes mellitus, COPD admitted for acute respiratory failure due to sepsis with community- acquired pneumonia along with COPD exacerbation. CTA evaluated showed no PE but opacity of the left lung base. Patient responded well with IV Rocephin and Zithromax was transition to p.o. Ceftin and Zithromax. Should he also responded well to steroids and basal and short acting insulin was given to help control blood sugars while on steroids. Due to his chronic kidney disease stage III, he was instructed to stop his metformin at home. For his morbid obesity with BMI greater than 48 weight loss counseling was performed. At this time, patient is ready to be transitioned home. He will walk for tests revealed patient had dropped sat to 88% with exertion on room air. Home O2 will be arranged for the patient prior to discharge at 2 L. At this time, patient will be transitioned home Time Spent with Patient Total time spent providing and/or coordinating discharge services: Less than 30 minutes Status at Discharge Functional status at discharge: independent ambulation Overall status at discharge: patient is progressing back to baseline Quality: VTE Deep Vein Thrombosis/Pulmonary Embolism Present on Admission: No Exam Narrative Exam Narrative: GENERAL: This is a well-nourished, obese, well-developed patient , in no apparent distress. CARDIOVASCULAR: Regular rate and rhythm RESPIRATORY: Relatively clear to auscultation. Breath sounds equal bilaterally. No wheezes, rales, or rhonchi. GASTROINTESTINAL: Abdomen soft, non-tender, obese nondistended. Normal active bowel sounds MUSCULOSKELETAL: Extremities without clubbing, cyanosis, 1+ edema NEURO: Alert & Oriented x4 to person, place, time, situation. Moves all ext x4 Results Labs on day of discharge: Labs from last 24 hours 08/01/18 07/31/18 07/31/18 07:24 20:10 16:15 POC Glucose 259 H 489 H* 384 H 07/31/18 12:06 POC Glucose 394 H Preliminary micro results at discharge 07/29/18 11:35 Aerobic Blood Culture - Preliminary Blood - Peripheral No growth in 2 days Anaerobic Blood Culture - Preliminary No growth in 2 days 07/29/18 11:30 Aerobic Blood Culture - Preliminary Blood - Peripheral No growth in 2 days Anaerobic Blood Culture - Preliminary No growth in 2 days Impressions ITS Impressions Chest X-Ray 07/29/18 11:27 CONCLUSION: No acute cardiopulmonary disease. Chest CTA 07/29/18 12:27 CONCLUSION: 1. Suboptimal examination secondary to suboptimal opacification of the pulmonary arterial system. There is no evidence of central pulmonary alyssum. The secondary and tertiary branch vessels are in adequately evaluated and small emboli may be obscured. 2. Mild patchy opacity in the left medial lung base which could represent an early pneumonia. Discharge Plan Discharge Disposition Patient Disposition: 01 Discharge Home Discharge Condition Condition: Stable Discharge Order Discharge Orders: Discharge Order (Routine); Ordered 08/01/18 Ordered By: Tracie Liao Physicians Team Attending Provider: Tracie Liao Rxs /Orders / Referrals /Forms Prescriptions: New azithromycin 250 mg Tablet 500 mg PO DAILY Qty: 3 RF: 0 prednisone 20 mg Tablet 40 mg PO DAILY Qty: 13 RF: 0 cefuroxime axetil 500 mg Tablet 500 mg PO Q12HR Qty: 12 RF: 0 Continue furosemide 40 mg Tablet 40 mg PO DAILY RF: 0 enalapril maleate 20 mg Tablet 20 mg PO BID RF: 0 cadexomer iodine 0.9 % Gel 40 g TOPICAL Q3D RF: 0 glipizide 10 mg Tablet 10 mg PO BID RF: 0 docusate sodium 50 mg Capsule 50 mg PO DAILY RF: 0 clopidogrel 75 mg Tablet 75 mg PO DAILY RF: 0 aspirin [Aspir-81] 81 mg Tablet,Delayed Release (Dr/Ec) 81 mg PO DAILY RF: 0 amlodipine 10 mg Tablet 10 mg PO DAILY RF: 0 omeprazole 20 mg Capsule,Delayed Release(Dr/Ec) 20 mg PO DAILY RF: 0 albuterol sulfate 90 mcg/actuation Hfa Aerosol Inhaler 2 puff INHALATION Q4-6H PRN (Reason: Wheezing) RF: 0 budesonide-formoterol 160-4.5 mcg/actuation Hfa Aerosol Inhaler 2 puff INHALATION BID RF: 0 ferrous sulfate 324 mg (65 mg iron) Tablet,Delayed Release (Dr/Ec) 324 mg PO BID RF: 0 potassium chloride 20 mEq Tablet Extended Release 20 meq PO BID RF: 0 tramadol 50 mg Tablet 50 mg PO Q4-6H PRN (Reason: Pain) RF: 0 simvastatin 40 mg Tablet 40 mg PO QPM RF: 0 Discontinued metformin 500 mg Tablet 500 mg PO BID RF: 0 hydrochlorothiazide 25 mg Tablet 25 mg PO DAILY RF: 0 sorbitol 70 % Solution 15 ml PO DAILY RF: 0 Referrals: Nathanael Macias [Other] - See Instructions (PHYSICIAN UNKNOWN ) Discharge Instructions Patient Printed Instructions: Cefuroxime (By mouth), Prednisone (By mouth), Azithromycin (By mouth), Bacterial Pneumonia (DC) Post Discharge Care Plan Care Plan Goals: Discharge Care Plan Goals for COPD You have been diagnosed with chronic obstructive pulmonary disease (COPD). This is a name given to a group of diseases that limit the flow of air in and out of your lungs. This makes it harder to breathe. With COPD, you are also more likely to get lung infections. COPD includes chronic bronchitis and emphysema. COPD is most often caused by heavy, long-term cigarette smoking. Directions to Meet your Goals: 1. Quit smoking: * If you smoke, quit. It is the best thing you can do for your COPD and your overall health. * Join a stop-smoking program. There are even telephone, text message, and Internet programs to help you quit. * Ask your doctor about medicines or other methods to help you quit. * Ask family members to quit smoking as well. * Don't allow people to smoke in your home, in your car, or when they are around you. 2. Protect yourself from infection: * Wash your hands often. Do your best to keep your hands away from your face. Most germs are spread from your hands to your mouth. * Get a flu shot every year. Also ask your provider about pneumonia vaccines. * Avoid crowds. It's especially important to do this in the winter when more people have colds and flu. * To stay healthy, get enough sleep, exercise regularly, and eat a balanced diet. You should: -Get about 8 hours of sleep every night. -Try to exercise for at least 30 minutes on most days. -Have healthy foods including fruits and vegetables, 100% whole grains, lean meats and fish, and low-fat dairy products. -Try to stay away from foods high in fats and sugar. 3. Take your medicines: * Take your medicines exactly as directed. Don't skip doses. 4. Manage you stress: Stress can make COPD worse. Use this stress management technique: * Find a quiet place and sit or lie in a comfortable position. * Close your eyes and perform breathing exercises for several minutes. 5. Pulmonary rehabilitation: * Pulmonary rehab can help you feel better. These programs include exercise, breathing techniques, information about COPD, counseling, and help for smokers. * Ask your doctor or your local hospital about programs in your area. 6. When to call your doctor: Call doctor immediately if you have any of the following: Shortness of breath, wheezing, or coughing Increased mucus Yellow, green, bloody, or smelly mucus Fever or chills Tightness in your chest that does not go away with rest or medicine An irregular heartbeat or a feeling that your heart is beating very fast Swollen ankles 7. Follow-up: Do Not miss your follow-up appointment. Keep up with all your appointments and yearly check ups Discharge Care Plan Goals for Pneumonia You have been diagnosed with pneumonia. This is a serious lung infection. Most cases of pneumonia are caused by bacteria. Pneumonia most often occurs in older adults, young children, and people with chronic health problems. Directions to Meet your Goals: 1. Home care: * Take your medicine exactly as directed. Dont skip doses. Continue taking your antibiotics as until they are all gone, even if you start to feel better. This will prevent the pneumonia from coming back. * Drink at least 8 glasses of water daily, unless directed otherwise. This helps to loosen and thin secretions so that you can cough them up. * Use a cool-mist humidifier in your bedroom. Be sure to clean the humidifier daily. * Dont use medicines to suppress your cough unless your cough is dry, painful, or interferes with your sleep. Coughing up mucus is normal. You may use an expectorant if your doctor says its okay. * You can use warm compresses or a heating pad on the lowest setting to relieve chest discomfort. Use several times a day for 15-20 minutes at a time. To prevent injury to your skin, set the temperature to warm, not hot. Dont put the compress or pad directly on your skin. Make certain it has a cover or wrap it in a towel. This is to prevent skin vu. * Get plenty of rest until your fever, shortness of breath, and chest pain go away. * Plan to get a flu shot every year. The flu is a common cause of pneumonia. Getting a flu shot every year can help prevent both the flu and pneumonia. 2. Getting the pneumococcal vaccine: * Talk with your doctor about getting the pneumococcal vaccine. Pneumococcal pneumonia is caused by bacteria that spread from person to person. It can cause minor problems, such as ear infections. But it can also turn into life- threatening illnesses of the lungs (pneumonia), the covering of the brain and spinal cord (meningitis), and the blood (bacteremia). * Make sure to ask your doctor if you should have the vaccine. Children under 2 years of age, adults over age 65, people with certain health conditions, and smokers are at the highest risk of pneumococcal disease. This vaccine can help prevent pneumococcal disease in both adults and children. 3. Follow-up care: Do Not miss your follow-up appointment. Keep up with all your appointments and yearly check ups 4. When to call your doctor: Call your doctor immediately if you have any of the following: Fever of 100.4F (38C) or higher, or as directed by your healthcare provider Mucus from the lungs (sputum) thats yellow, green, bloody, or smells bad Vomiting Any symptoms that get worse 5. Call 911: Call 911 right away if you have any of the following: Chest pain Trouble breathing Blue lips or fingernails Status ED Status: Left Department
--- NOTE | 2018-08-01 13:06 | ECHRPT ---
Indication: shortness of breath CONCLUSIONS Normal left ventricular size. Moderate concentric left ventricular hypertrophy. The left ventricular systolic function is normal with an estimated ejection fraction in the range of 55-60%. The left atrial size is [id number] dilated. Mild mitral valve regurgitation. Mild mitral annular calcification. Mild thickening of the aortic valve leaflets. The estimated pulmonary arterial pressure is 20.mmHg. BP: / HR: Rhythm: MEASUREMENTS (Male / Female) Normal Values Technical Quality: 2D ECHO LV Diastolic Diameter PLAX 3.5 cm 4.2 - 5.9 / 3.9 - 5.3 cm LV Systolic Diameter PLAX 3.1 cm IVS Diastolic Thickness 1.7 cm 0.6 - 1.0 / 0.6 - 0.9 cm LVPW Diastolic Thickness 1.7 cm 0.6 - 1.0 / 0.6 - 0.9 cm LV Relative Wall Thickness 1.0 RV Internal Dim ED PLAX 4.3 cm LVOT Diameter 2.1 cm Aortic Root Diameter 3.0 cm LA Systolic Diameter LX 4.5 cm 3.0 - 4.0 / 2.7 - 3.8 cm LV Ejection Fraction MOD 4C 53.3 % LV Ejection Fraction 4C AL 54.2 % M-MODE Aortic Root Diameter MM 3.7 cm LA Systolic Diameter MM 5.2 cm LA Ao Ratio MM 1.4 AV Cusp Separation MM 2.5 cm DOPPLER AV Peak Velocity 168.0 cm/s AV Peak Gradient 11.3 mmHg LVOT Peak Velocity 153.0 cm/s LVOT Peak Gradient 9.4 mmHg AV Area Cont Eq pk 3.2 cm Mitral E Point Velocity 66.6 cm/s Mitral A Point Velocity 79.0 cm/s Mitral E to A Ratio 0.8 LV E' Lateral Velocity 8.4 cm/s Mitral E to LV E' Lateral Ratio 7.9 LV E' Septal Velocity 5.8 cm/s Mitral E to LV E' Septal Ratio 11.6 TR Peak Velocity 159.0 cm/s TR Peak Gradient 10.1 mmHg Right Atrial Pressure 10.0 mmHg Pulmonary Artery Systolic Pressu 20.1 mmHg Right Ventricular Systolic Press 20.1 mmHg PV Peak Velocity 129.0 cm/s PV Peak Gradient 6.7 mmHg FINDINGS LEFT VENTRICLE Normal left ventricular size. Moderate concentric left ventricular hypertrophy. The left ventricular systolic function is normal with an estimated ejection fraction in the range of 55-60%. RIGHT VENTRICLE Normal right ventricular size and systolic function. LEFT ATRIUM The left atrial size is [id number]-kb-szdsxonfar dilated. RIGHT ATRIUM The right atrial size is normal. ATRIAL SEPTUM Normal atrial septal thickness without atrial level shunting by limited color doppler interrogation. AORTA The aortic root and proximal ascending aorta are normal in size on limited imaging. MITRAL VALVE Mild mitral valve regurgitation. Mild mitral annular calcification. AORTIC VALVE Mild thickening of the aortic valve leaflets. TRICUSPID VALVE The estimated pulmonary arterial pressure is 20.mmHg. PULMONARY VALVE No pulmonary valve regurgitation or stenosis. VESSELS The inferior vena cava is normal in size. PERICARDIUM No pericardial effusion. Bob Valerio MD, FACC (Electronically Signed) Final Date:01 August 2018 13:04
== END 2018-08-01 15:21 | disposition home or self-care (01) ==
LOC: NEPC 11:11 → NEDA 14:54 → N04 16:07
PROVIDERS: ADMIT Family Medicine; ATTEND Family Medicine
DX: J44.1 Chronic obstructive pulmonary disease with (acute) exacerbation; E78.5 Hyperlipidemia, unspecified; N18.3 Chronic kidney disease, stage 3 (moderate); Z79.84 Long term (current) use of oral hypoglycemic drugs; I25.10 Atherosclerotic heart disease of native coronary artery without angina pectoris; K21.9 Gastro-esophageal reflux disease without esophagitis; E66.01 Morbid (severe) obesity due to excess calories; Z87.891 Personal history of nicotine dependence; A41.9 Sepsis, unspecified organism; E11.22 Type 2 diabetes mellitus with diabetic chronic kidney disease; J44.0 Chronic obstructive pulmonary disease with (acute) lower respiratory infection; J18.9 Pneumonia, unspecified organism; Z95.5 Presence of coronary angioplasty implant and graft; J96.01 Acute respiratory failure with hypoxia; I12.9 Hypertensive chronic kidney disease with stage 1 through stage 4 chronic kidney disease, or unspecified chronic kidney disease; Z68.41 Body mass index [BMI] 40.0-44.9, adult